=== PATIENT | female | born 1930 | race Native Hawaiian/Other Pacific Islander ===

== ENCOUNTER 2017-12-20 13:07 | Outpatient (CLI) | payer OTHER ==
[2017-12-20 13:35] LABS: POTASSIUM 4.5 mmol/L (3.6-5.2)
== END 2017-12-20 19:35 | disposition home or self-care (01) ==
LOC: LABW 13:07
PROVIDERS: Internal Medicine Cardiovascular Disease
DX: I50.9 Heart failure, unspecified (principal); Z79.899 Other long term (current) drug therapy
CPT/HCPCS: 36415; 80048; 83880